=== PATIENT | male | born 1935 | race Caucasian/White ===

== ENCOUNTER 2021-10-04 17:19 | Inpatient (IN) | payer OTHER ==
--- OUTSIDE RECORDS SUMMARY | 2021-10-04 19:07 | XMS REPORT | Continuity of Care Document ---
:1935 Author Organization [facility] t Address [address] [place] [address] Dr. Temple [address] [place] [id number] Care Team Providers Name Role Phone Unavailable Unavailable Unavailable Problems This patient has no known problems. Allergies, Adverse Reactions, Alerts This patient has no known allergies or adverse reactions. Medications This patient has no known medications. Procedures This patient has no known procedures. Encounters Start End Encounter Admission Attending Care Care Encounter Source Date/Time Date/Time Type Type Clinicians Facility Department ID 2021-05-24 Outpatient [facility] [id number] Common 11:58:50 [id number] [facility] 2020-05-24 2020-05-24 Outpatient [facility] [id number] Common 00:00:00 00:00:00 [facility] 2020-02-22 2020-02-22 [facility]patient [facility] [id number] Common 00:00:00 00:00:00 [facility] Results This patient has no known results.
[2021-10-04] MEDS ORDERED: CEFTRIAXONE 1,000 MG in NA CHLORIDE 0.9% 50 ML IVPB ONE (21:58)
[2021-10-04] MEDS ORDERED: ACETAMINOPHEN 500 MG TAB PO PRN (22:02)
[2021-10-04] MEDS ORDERED: MAGNES/ALUMIN/SIMET 30ML UCUP PO PRN (22:02)
[2021-10-04] MEDS ORDERED: ONDANSETRON 4 MG/2 ML VIAL IV PRN (22:08)
[2021-10-04] MEDS ORDERED: MELATONIN 3 MG TABLET PO PRN (22:09)
[2021-10-04] MEDS: NA CHLORIDE 0.9% 1,000 ML IV SCH (22:43)
[2021-10-05 00:07] VITALS: O2SAT 96; BMI 21.7
[2021-10-05] MEDS: LEVOTHYROXINE SOD 0.088 MG TAB PO SCH (05:35)
[2021-10-05] MEDS: PANTOPRAZOLE 40MG TABLET PO SCH (05:35)
[2021-10-05 06:29] LABS: Absolute Lymphocytes (CBC) 0.8 K/uL (0.7-4.9); Hematocrit 43.3 % (39.6-49.0); Lymphocytes % 14.5 % (15.3-44.8); MPV 7.3 fL (7.6-11.3); RBC Red Blood Cell Count 4.93 M/uL (4.33-5.43)
[2021-10-05 06:46] LABS: Albumin 3.5 g/dL (3.4-5.0); Bilirubin Total 0.8 mg/dL (0.2-1.0); Potassium 3.2 mmol/L (3.5-5.1)
[2021-10-05] MEDS ORDERED: POTASSIUM CL SA 10 MEQ TAB PO ONE (08:00)
[2021-10-05] MEDS ORDERED: HOME MED 1 EA UNK (Omeprazole [Omeprazole] 20 MG Capsule.Dr) PO SCH (09:00)
[2021-10-05] MEDS: NA CHLORIDE 0.9% 1,000 ML IV SCH ×2 (09:01→18:00)
[2021-10-05] MEDS: MEMANTINE HCL 10 MG TABLET PO SCH ×2 (09:01→21:29)
[2021-10-05] MEDS: ATORVASTATIN 10 MG TAB PO SCH (09:01)
[2021-10-05] MEDS: HEPARIN 5000 UNIT/ML 1 ML VIAL SQ SCH ×2 (09:02→21:29)
[2021-10-05] MEDS: CEFTRIAXONE 1,000 MG in NA CHLORIDE 0.9% 50 ML IVPB SCH ×2 (09:02→21:29)
--- NOTE | 2021-10-05 09:29 | HP ---
Date of Admission: 10/04/2021 Chief Complaint: Not feeling good. History Of Present Illness: This is a very pleasant 86-year-old male patient who came into office on 10/02/2021 with his who reported that for last few to several days the patient is not eating we ll, feels very sleepy and tired all the time. Denies any fever. No fall. No head injury. No cough , congestion, sore throat. No dyspnea. No vomiting or diarrhea. No urinary complaints like dysuria or hematuria. No recent change in medication. He has lost almost 10 pounds within last 1 month. A fter all these complaints, he was sent to a hospital for blood work, chest x-ray, urine test. This w as done yesterday and he was asked to come see me today and after I evaluated him, decision was made to admit him to the hospital with acute kidney failure, urinary tract infection, dehydration. The pa tierachelle has not been taking medications regularly either lately as reported by patient's . Allergies: NO KNOWN ALLERGIES. Medications: Atorvastatin 10 mg daily, amlodipine 10 mg daily, donepezil 10 mg daily, Boniva 150 mg once a month, levothyroxine 88 mcg daily, losartan 25 mg daily in morning, memantine 10 mg 2 times a day, omeprazole 20 mg daily. Review of Systems: Constitutional: As mentioned above. All other systems reviewed and negative. Past Medical History: Significant for hypothyroidism, impaired fasting glucose, hypertension, hyperl ipidemia, aortic stenosis, carotid artery stenosis, gastroesophageal reflux disease, prostate cancer, dementia, and osteoporosis. Past Surgical History: Negative. Family History: Father , had hypertension. Mother , had stroke. Social History: Negative for smoking, alcohol use. Immunization History: The patient's COVID-19 vaccine first dose June 01, 2020, second dose June 28, 2020, and third dose February 24, 2021. Physical Examination: Vital Signs: Upon admission, height 5 feet 6 inches, weight 135 pounds. Temperature 97.6, pulse 62, respiratory rate 17, blood pressure 124/61, oxygen saturation 95%. General: The patient is awake, alert, not oriented, but not in any distress. HEENT: Head atraumatic, normocephalic. Conjunctivae nonerythematous. Sclerae white. Mouth, no thr ush or edema noted. Ears/Nose, no mass, lesion, discharge noted. Neck: Supple. No JVD, lymph nodes, bruit, thyromegaly noted. Lungs: Bilateral good equal air entry. Clear to auscultation. No rhonchi. No rales. Heart: Normal heart sounds, no murmur or gallop. Abdomen: Soft, bowel sounds normal. No guarding, rigidity, tenderness, mass, hepatosplenomegaly, dis tention, or bruit noted. Extremities: No leg edema. No calf tenderness. Skin: No rash, ulcer, cellulitis. Lymphatics: No lymph node enlargement in neck, supraclavicular, infraclavicular region. Neuro: No focal neurological deficit. Chest: Unremarkable. External Genitalia: Deferred. Rectal: Deferred. Laboratory Data: Urinalysis from yesterday, 2+ ketone, 1+ blood, 2+ bilirubin, WBC 5-10, bacteria 20 -50, protein 2+, negative for leukocyte esterase. Sodium 138, potassium 3.4, chloride 102, bicarb 27 , BUN 29, creatinine 2.26, and glucose 102. Total bilirubin 1.2, AST 48, ALT 59. Liver function lissett ts otherwise unremarkable. TSH slightly elevated at 5.9. White count 7.1, hemoglobin 16.1, platelet s 210. Chest x-ray, changes of COPD. No acute cardiac intrathoracic changes noted. Impression: 1.Acute kidney injury. 2.Urinary tract infection. 3.Senile dementia. 4.Hypertension. 5.Hyperlipidemia. 6.Aortic stenosis. 7.Hypothyroidism. 8.Impaired fasting glucose. 9.Prostate cancer. 10.Osteoporosis. 11.Gastroesophageal reflux disease. 12.Altered mental status. Plan: We will admit the patient to hospital for further evaluation and management of this problem. The patient is appropriate for inpatient and is expected to spend 2 midnights in hospital. We will c ontinue his home medications per order. We will go ahead and give DVT prophylaxis using Lovenox per order. IV fluid will be started. We will repeat blood work tomorrow morning. Urine culture was don e yesterday as outpatient. Result is pending. We will follow up on that result. Meanwhile, we will start him on empiric antibiotic, ceftriaxone and repeat blood work tomorrow morning. Consult Physic al Therapy for ambulation and fall precaution was ordered. Details and plan of treatment discussed w ith the patient. I will see him tomorrow morning for followup. TOYA/KIRTI Voice ID: [id number]
--- NOTE | 2021-10-05 14:18 | EKG ---
Test Date: 2021-10-05 Test Time: 01:14:59 Paper Stripper: RT MEASUREMENT RESULTS: Intervals: Rate: 73 [place]: QRSD: 94 QT: 416 QTc: 458 [place]: P: [place]: QRS: -26 T: 201 INTERPRETIVE STATEMENTS: Atrial fibrillation with premature ventricular or aberrantly conducted complexes Possible Inferior infarct, age undetermined Abnormal ECG Compared to ECG 10/15/2013 09:01:55 Ventricular premature complex(es) now present Myocardial infarct finding now present Sinus bradycardia no longer present First degree AV block no longer present Electronically Signed On 10-05-21 14:17:49 CDT by Gagan Arroyo
[2021-10-05] MEDS ORDERED: AMLODIPINE 10 MG TAB PO SCH (21:00)
[2021-10-05] MEDS: DONEPEZIL HCL 5 MG TAB PO SCH (21:29)
--- NOTE | 2021-10-06 00:40 | PN ---
Date of Progress Note: 10/05/2021 Subjective: Patient was seen this morning for followup. No new complaints or problems reported by windy smith. He was sitting in the chair. His daughter was with him in the room. Denies any new complai nts. Objective: Vital Signs: Reviewed. HEENT: Unremarkable. Lungs: Clear to auscultation. Heart: Heart sounds normal. Abdomen: Soft, bowel sounds normal. No guarding, rigidity, tenderness, or distention. Extremities: No leg edema. Laboratory Data: White count 5.8, hemoglobin 14.8, platelets 210. Sodium 141, potassium 3.2, chlori de 104, bicarb 28, BUN 29, creatinine 1.85, glucose 79. Liver function tests unremarkable. Impression: 1.Acute kidney injury. 2.Urinary tract infection. 3.Senile dementia. 4.Encephalopathy, metabolic. 5.Hypertension. 6.Hyperlipidemia. Plan: We will go ahead and continue IV fluid. We will have patient ambulate with physical therapy. Continue current antibiotic, which is ceftriaxone. Urine culture result is pending. Hopefully by t omorrow we should have the urine culture result back. We will repeat blood work tomorrow morning and possible discharge to go home tomorrow depending on patient's condition and urine culture results. Details were discussed with the patient and family. TOYA/MODL Voice ID: [id number] Report ID: [id number]
[2021-10-06] MEDS: NA CHLORIDE 0.9% 1,000 ML IV SCH ×2 (04:58→14:02)
[2021-10-06] MEDS: LEVOTHYROXINE SOD 0.088 MG TAB PO SCH (06:02)
[2021-10-06] MEDS: PANTOPRAZOLE 40MG TABLET PO SCH (06:02)
[2021-10-06 06:27] LABS: Magnesium 1.9 mg/dL (1.8-2.4); Potassium 3.6 mmol/L (3.5-5.1)
[2021-10-06] MEDS ORDERED: POTASSIUM CL SA 10 MEQ TAB PO ONE (09:00)
[2021-10-06] MEDS: MEMANTINE HCL 10 MG TABLET PO SCH ×2 (09:31→20:49)
[2021-10-06] MEDS: ATORVASTATIN 10 MG TAB PO SCH (09:31)
[2021-10-06] MEDS: CEFTRIAXONE 1,000 MG in NA CHLORIDE 0.9% 50 ML IVPB SCH ×2 (09:33→20:51)
[2021-10-06] MEDS: HEPARIN 5000 UNIT/ML 1 ML VIAL SQ SCH ×2 (09:33→20:48)
--- NOTE | 2021-10-06 16:23 | RAD REPORT ---
EXAM DESCRIPTION: US - Urinary Bladder - 10/06/2021 4:15 pm CLINICAL HISTORY: acute kidney injury COMPARISON: No comparisons FINDINGS: No urinary bladder wall thickening or focal bladder wall mass. No stones are seen though t here is minimal echogenic debris within the bladder lumen layering along the dependent portion. Prevoid volume was 190 milliliters. Postvoid volume was 42 milliliters.
--- NOTE | 2021-10-06 16:26 | RAD REPORT ---
EXAM DESCRIPTION: US - Renal Ultrasound-Complete - 10/06/2021 4:15 pm CLINICAL HISTORY: acute kidney injury COMPARISON: Abdomen Pelvis W Contrast dated 12/18/2016 FINDINGS: The right kidney measures 10.4 x 5.4 x 3.7 cm. The left kidney measures 11.7 x 6.2 x 4.3 cm. Cortical thickness is normal for each kidney. Echogenicity of the parenchyma is increased slightl y which can be body habitus artifact or indicate underlying medical renal disease. No hydronephrosis or suspicious renal mass. Small 11 mm cyst seen in the lateral mid upper right kidney. The small cyst is not significantly different from the 2017 CT study. Urinary bladder is detailed in separate report. IMPRESSION: Suspected underlying medical renal disease with no hydronephrosis or suspicious mass.
[2021-10-06] MEDS: DONEPEZIL HCL 5 MG TAB PO SCH (20:49)
[2021-10-07] MEDS: PANTOPRAZOLE 40MG TABLET PO SCH (05:52)
[2021-10-07] MEDS: LEVOTHYROXINE SOD 0.088 MG TAB PO SCH (05:52)
[2021-10-07 06:43] LABS: Potassium 3.6 mmol/L (3.5-5.1)
[2021-10-07] MEDS ORDERED: POTASSIUM CL SA 10 MEQ TAB PO ONE (09:00)
[2021-10-07] MEDS: ATORVASTATIN 10 MG TAB PO SCH (09:05)
[2021-10-07] MEDS: MEMANTINE HCL 10 MG TABLET PO SCH (09:05)
[2021-10-07] MEDS: HEPARIN 5000 UNIT/ML 1 ML VIAL SQ SCH (09:06)
[2021-10-07] MEDS: CEFTRIAXONE 1,000 MG in NA CHLORIDE 0.9% 50 ML IVPB SCH (09:06)
[2021-10-07] MEDS: NA CHLORIDE 0.9% 1,000 ML IV SCH ×2 (10:00)
[2021-10-07 13:16] VITALS: BP 118/63; TEMP 98.7
--- NOTE | 2021-10-21 16:19 | PN ---
Date of Progress Note: 10/06/2021 Subjective: The patient was seen this morning for followup. No new complaints, problems reported by him. Lying in bed, not in distress. Denies any chest pain, shortness of breath. No nausea, no vom iting. Objective: Vital Signs: Reviewed. HEENT: Unremarkable. Lungs: Clear to auscultation. Heart: Sounds normal. Abdomen: Soft. Bowel sounds normal. No guarding, rigidity, tenderness, or distention. Extremities: No leg edema. Laboratory Data: Sodium 140, potassium 3.6, chloride 111, bicarb 25, BUN 27, creatinine 1.65, glucos e 81, magnesium 1.9. Impression: 1.Acute kidney injury. 2.Urinary tract infection. 3.Mild dementia. 4.Metabolic encephalopathy. 5.Hypertension. 6.Hyperlipidemia. Plan: The patient's renal function has improved. We will continue current IV fluid. We will contin ue current antibiotics. Physical Therapy to continue to work with the patient. We will repeat blood work tomorrow. Possible discharge to go home tomorrow depending on the patient's overall condition and lab results. Details and plan of treatment discussed with the patient and the patient's family that is patient's . TOYA/MODL Voice ID: [id number] Report ID: [id number]
--- NOTE | 2021-10-21 20:10 | DS ---
Date of Discharge: 10/07/2021 Disposition: Discharged to go home. Discharge Medications And Instructions: 1.Continue all prior home medications except stop amlodipine and stop losartan. 2.Follow up at my office next week on , which is 10/12/2021. 3.Eat 3 meals a day and drink Ensure or boost 2 cans a day. 4.Drink 50-60 ounce of water daily. Laboratory Data: Last chemistry today, sodium 142, potassium 3.6, chloride 113, bicarb 23, BUN 21, c reatinine 1.49, glucose 82. On 10/05/2021, sodium 141, potassium 3.2, chloride 104, bicarb 28, BUN 2 9, creatinine 1.85, glucose 79. Liver function tests unremarkable. Ultrasound of kidney shows suspe cted underlying medical renal disease. No hydronephrosis. No suspicious mass. Ultrasound of bladde r was unremarkable, no evidence of any bladder mass or stone except minimal echogenic debris within t he bladder lumen layering along the dependent portion. Hospital Course: This is an 86-year-old male patient who was admitted to the hospital with acute kid toro injury and urinary tract infection. Please see dictated H and P for more information. The patie nt's urinalysis had shown 2+ ketone, 1+ blood, 2+ bilirubin, wbc 5-10, bacteria 20-50, protein 2+, ne gative for leukocyte esterase. Urine culture did not grow any specific bacteria. Outpatient creatin ine was 2.26. This was done day prior to admission. Chest x-ray had shown changes of COPD, no acute intrathoracic changes. After the patient was admitted to the hospital, he was given IV fluid and IV antibiotics. Overall his condition improved. Renal function improved and we were able to discharge him to go back home in stable condition with above-mentioned medications and instructions. Final Diagnoses: 1.Acute kidney injury. 2.Urinary tract infection. 3.Senile dementia. 4.Hypertension. 5.Hyperlipidemia. 6.Encephalopathy, metabolic. 7.Aortic stenosis. 8.Hypothyroidism. 9.Impaired fasting glucose. 10.Prostate cancer. 11.Osteoporosis. 12.Gastroesophageal reflux disease. TOYA/MODL Voice ID: [id number] Report ID: [id number]
== END 2021-10-07 12:45 | disposition home health service (06) | DRG 682 ==
LOC: 2ND 19:04
PROVIDERS: ADMIT Internal Medicine; ATTEND Internal Medicine
DX: N17.9 Acute kidney failure, unspecified (principal); G93.41 Metabolic encephalopathy; N39.0 Urinary tract infection, site not specified; Q78.2 Osteopetrosis; J44.9 Chronic obstructive pulmonary disease, unspecified; E03.9 Hypothyroidism, unspecified; I35.0 Nonrheumatic aortic (valve) stenosis; E78.5 Hyperlipidemia, unspecified; K21.9 Gastro-esophageal reflux disease without esophagitis; Z85.46 Personal history of malignant neoplasm of prostate; F03.90 Unspecified dementia, unspecified severity, without behavioral disturbance, psychotic disturbance, mood disturbance, and anxiety; I10 Essential (primary) hypertension
CPT/HCPCS: 36415; 71046; 76770; 76857; 80048; 80053; 81003; 81015; 83735; 84132; 84439; 84443; 85025; 87086; 87088; 93005; 97110; 97116; 97161; 97530; J1644; J7030; U0003

== ENCOUNTER 2021-10-21 03:36 | Inpatient (IN) | payer OTHER ==
--- OUTSIDE RECORDS SUMMARY | 2021-10-21 03:39 | XMS REPORT | Continuity of Care Document ---
:[address] [facility] t Address [address] [place] [address] Dr. Temple [address] [place] [id number] Care Team Providers Name Role Phone Unavailable Unavailable Unavailable Problems This patient has no known problems. Allergies, Adverse Reactions, Alerts This patient has no known allergies or adverse reactions. Medications This patient has no known medications. Procedures This patient has no known procedures. Encounters Start End Encounter Admission Attending Care Care Encounter Source Date/Time Date/Time Type Type Clinicians Facility Department ID 2021-05-[address] [facility] [id number] Common 11:58:50 [id number] [facility] 2020-05-24 2020-05-[address] [facility] [id number] Common 00:00:00 00:00:00 [facility] 2020-02-22 2020-02-22 [facility] [id number] Common 00:00:00 00:00:00 [facility] Results This patient has no known results.
[2021-10-21] MEDS ORDERED: propofoL 1,000 MG/100 ML VIAL IV ONE (04:31)
[2021-10-21] MEDS ORDERED: METOPROLOL TARTRATE 5 MG/5 ML INJ IV ONE (04:44)
[2021-10-21 04:45] LABS: Protime INR 1.17
[2021-10-21 05:07] LABS: Albumin 3.7 g/dL (3.4-5.0); Bilirubin Direct 0.3 mg/dL (0-0.2); Magnesium 2.1 mg/dL (1.8-2.4); Potassium 3.4 mmol/L (3.5-5.1); Protein, Total 7.1 g/dL (6.4-8.2); Troponin High Sensitivity 50.6 pg/mL (<58.9)
[2021-10-21 05:16] LABS: Absolute Lymphocytes (CBC) 1.8 K/uL (0.7-4.9); Hematocrit 42.8 % (39.6-49.0); Lymphocytes % 27.2 % (15.3-44.8); MCV 89.8 fL (80-100); MPV 7.5 fL (7.6-11.3); RBC Red Blood Cell Count 4.77 M/uL (4.33-5.43)
[2021-10-21 06:20] LABS: Arterial Blood Carboxyhemoglob 0.8 % (0-1.5); Blood Gas Oxyhemoglobin 95.1 % (94-97); Blood O2 Saturation 96.8 % (92-98.5)
--- NOTE | 2021-10-21 06:37 | EDPHYS ---
Physician Documentation [facility] Name: Alphonso Storm Age: 86 yrs Sex: Male : 1935 Arrival Date: 10/21/2021 Time: 03:38 Bed 7 Private MD: ED Physician Silvano Alvarado HPI: 10/21 03:45 This 86 yrs old Male presents to ER via EMS with complaints of Fall. [facility] 03:45 Details of fall: The patient fell from an upright position, while walking. Onset: The [facility] symptoms/episode began/occurred today. Associated injuries: The patient sustained injury to the head, contusion, pain. 03:45 Severity of symptoms: At their worst the symptoms were moderate, earlier today, in the [facility] emergency department the symptoms have improved, moderately. EMS reports they were called due to patient falling at home. They found him to be bradycardic with HR in the 30's he responded to Atropine 0.5 mg.. Historical: - Allergies: 03:49 HYDROCODONE; ll3 03:49 tramadol; ll3 - PMHx: 03:49 GERD; High Cholesterol; Hypertension; Hypothyroidism; ll3 ROS: 03:45 Constitutional: Negative for fever, chills, and weight loss, Eyes: Negative for injury, mh7 pain, redness, and discharge, ENT: Negative for injury, pain, and discharge, Neck: Negative for injury, pain, and swelling, Cardiovascular: Negative for chest pain, palpitations, and edema, Respiratory: Negative for shortness of breath, cough, wheezing, and pleuritic chest pain, Abdomen/GI: Negative for abdominal pain, nausea, vomiting, diarrhea, and constipation, Back: Negative for injury and pain, : Negative for injury, bleeding, discharge, and swelling, MS/Extremity: Negative for injury and deformity, Skin: Negative for injury, rash, and discoloration, Neuro: Negative for headache, weakness, numbness, tingling, and seizure, Psych: Negative for depression, anxiety, suicide ideation, homicidal ideation, and hallucinations, Allergy/Immunology: Negative for hives, rash, and allergies, Endocrine: Negative for neck swelling, polydipsia, polyuria, polyphagia, and marked weight changes, Hematologic/Lymphatic: Negative for swollen nodes, abnormal bleeding, and unusual bruising. Exam: 03:45 Head/Face: Normocephalic, atraumatic. Eyes: Pupils equal round and reactive to light, mh7 extra-ocular motions intact. Lids and lashes normal. Conjunctiva and sclera are non-icteric and not injected. Cornea within normal limits. Periorbital areas with no swelling, redness, or edema. Neck: Trachea midline, no thyromegaly or masses palpated, and no cervical lymphadenopathy. Supple, full range of motion without nuchal rigidity, or vertebral point tenderness. No Meningismus. Chest/axilla: Normal chest wall appearance and motion. Nontender with no deformity. No lesions are appreciated. Cardiovascular: Regular rate and rhythm with a normal S1 and S2. No gallops, murmurs, or rubs. Normal PMI, no JVD. No pulse deficits. Respiratory: Lungs have equal breath sounds bilaterally, clear to auscultation and percussion. No rales, rhonchi or wheezes noted. No increased work of breathing, no retractions or nasal flaring. Abdomen/GI: Soft, non-tender, with normal bowel sounds. No distension or tympany. No guarding or rebound. No evidence of tenderness throughout. Back: No spinal tenderness. No costovertebral tenderness. Full range of motion. Skin: Warm, dry with normal turgor. Normal color with no rashes, no lesions, and no evidence of cellulitis. MS/ Extremity: Pulses equal, no cyanosis. Neurovascular intact. Full, normal range of motion. Neuro: Awake and alert, GCS 15, oriented to person, place, time, and situation. Cranial nerves II-XII grossly intact. Motor strength 5/5 in all extremities. Sensory grossly intact. Cerebellar exam normal. Normal gait. Psych: Awake, alert, with orientation to person, place and time. Behavior, mood, and affect are within normal limits. 03:45 Constitutional: The patient appears in no acute distress, alert, awake, uncomfortable. Vital Signs: 03:43 BP 155 / 96; Pulse 48; Resp 18; Temp 97.3(TE); Pulse Ox 98% on R/A; Weight 61.23 kg ll3 (R); Height 5 ft. 7 in. (170.18 cm) (R); 04:21 BP 217 / 145; Pulse 141; Resp 23; Pulse Ox 96% on BVM; sm5 04:35 BP 169 / 105; Pulse 106; Resp 17; Pulse Ox 98% on ETT vent; sm5 04:45 BP 161 / 114; Pulse 116; Resp 18; Pulse Ox 95% on ETT vent; sm5 05:45 BP 160 / 82; Pulse 95; Resp 24; Pulse Ox 98% ; ll3 06:37 BP 146 / 74; Pulse 82; Resp 15; Pulse Ox 100% on Non-rebreather mask; ll3 07:00 BP 141 / 76; Pulse 75; Resp 16; Temp 97.6(TE); Pulse Ox 100% on Non-rebreather mask; jh6 07:34 BP 120 / 69; Pulse 78; Resp 8; Pulse Ox 100% ; jh6 03:43 Body Mass Index 21.14 (61.23 kg, 170.18 cm) 3 Procedures: 04:50 CPR: See CPR flow sheet. Initial patient assessment: pulses present w/ compressions, mh7 The presenting cardiac rhythm is V tach. respirations assisted with BVM, Compressions: began Meds given: Atropine X 1, Epinephrine X 1, Defibrillation: 100 joules X 2. regained rhythm, regained respirations. 04:50 Intubation: Ventilated with 100% NRB prior to procedure. O2 saturation prior to 7 procedure was 92 %. Intubated orally using # 3 Raghavendra blade with 7.5 mm ETT. was successful on first attempt. Ventilated with Ambu bag. ventilator. Cricoid pressure applied during procedure. Tube secured with ETT lopez at right side of mouth measured 22 cm at lip. Placement verified by CO2 detector with (+) color change, auscultating bilateral breath sounds, O2 saturation after procedure was 98 %. Patient tolerated well. MDM: 06:22 Differential diagnosis: closed head injury, contusion, fracture. Data reviewed: vital [facility] signs, nurses notes, EMS record, lab test result(s), drug level(s), electrolytes, EKG, radiologic studies, CT scan, plain films. Data interpreted: Pulse oximetry: on ventilator is 98 %. Interpretation: normal. Counseling: I had a detailed discussion with the patient and/or guardian regarding: the historical points, exam findings, and any diagnostic results supporting the discharge/admit diagnosis, the presence of at least one elevated blood pressure reading (>120/80) during this emergency department visit, lab results, radiology results, the need to transfer to another facility, for higher level of care. Response to treatment: the patient's symptoms have mildly improved after treatment. ED course: Patient with STEMI, intubated, and ready to transfer to [facility] but his family declined stating he is DNR. They also declined thrombolytics and anything other than comfort measures. They signed DNR form in the ER. Discussed with Dr. Sanchez who is agreeable with patient staying here if DNR.. 06:37 Patient medically screened. [facility] 10/21 03:47 Order name: Basic Metabolic Panel; Complete Time: 06:22 [facility] 10/21 03:47 Order name: CBC with Diff; Complete Time: 06:22 [facility] 10/21 03:47 Order name: LFT's; Complete Time: 06:22 [facility] 10/21 03:47 Order name: Magnesium; Complete Time: 06:22 [facility] 10/21 03:47 Order name: NT PRO-BNP; Complete Time: 06:22 [facility] 10/21 03:47 Order name: PT-INR; Complete Time: 04:47 [facility] 10/21 03:47 Order name: Troponin HS; Complete Time: 06:22 [facility] 10/21 03:47 Order name: XRAY Chest (1 view) [facility] 10/21 03:47 Order name: CT Head C Spine [facility] 10/21 04:42 Order name: Chest Single View [facility] 10/21 04:59 Order name: COVID-19 SARS RT PCR (Document "Date of Onset" if Symptomatic); Complete ll3 Time: 06:10/21 05:06 Order name: Arterial Blood Gas; Complete Time: 06:22 [facility] 10/21 03:47 Order name: EKG; Complete Time: 03:48 [facility] 10/21 03:47 Order name: Cardiac monitoring; Complete Time: 04:54 [facility] 10/21 03:47 Order name: EKG - Nurse/Tech; Complete Time: 04:54 [facility] 10/21 03:47 Order name: IV Saline Lock; Complete Time: 03:52 [facility] 10/21 03:47 Order name: Labs collected and sent; Complete Time: 04:54 [facility] 10/21 03:47 Order name: O2 Per Protocol; Complete Time: 03:52 [facility] 10/21 03:47 Order name: O2 Sat Monitoring; Complete Time: 03:52 [facility] 10/21 06:46 Order name: CONS Physician Consult EDNM Administered Medications: 04:18 Drug: EPINEPHrine 0.1mg/mL 1:10,000 1 mg Route: IVP; Site: right antecubital; 5 04:21 Drug: EPINEPHrine 0.1mg/mL 1:10,000 1 mg Route: IVP; Site: right antecubital; 5 04:22 Drug: Atropine 1 mg Route: IVP; Site: right antecubital; 5 04:25 Drug: Etomidate 20 mg Route: IVP; Site: right antecubital; 5 04:25 Drug: Rocuronium 50 mg Route: IVP; Site: right antecubital; 5 04:30 Drug: Propofol 5 mcg/kg/min Route: IV; Rate: calculated rate; Site: right antecubital; 5 07:26 Drug: morphine 4 mg Route: IVP; Infused Over: 4 mins; Site: right forearm; [facility] Disposition Summary: 10/21/21 06:37 Hospitalization Ordered Hospitalization Status: Inpatient Admission [facility] Provider: Abrahan Sanchez Condition: Critical [facility] Problem: new [facility] Symptoms: have improved [facility] Bed/Room Type: Standard [facility] Location: Telemetry/MedSurg (Inpatient)(10/21/21 09:12) Room Assignment: [facility](10/21/21 09:12) Diagnosis - ST elevation (STEMI) myocardial infarction of unspecified site [facility] - Cardiac arrest due to underlying cardiac condition [facility] Forms: - Medication Reconciliation Form [facility] - SBAR form [facility] Signatures: Dispatcher [employer] EDNM Candi Davison Maurice, MD MD 7 Tanisha Weldon RN RN adarsh3 Alessandra Thomas RN RN 6 Stacey Marin RN RN 5 Corrections: (The following items were deleted from the chart) 05:34 05:07 Chest Single View+RAD.RAD.BRZ ordered. EDNM EDNM 09:12 06:37 Intensive Care Unit [facility] eb 09:12 06:37 [facility]
--- NOTE | 2021-10-21 06:37 | ER ---
Nurse's Notes [facility] Name: Alphonso Storm Age: 86 yrs Sex: Male : 1935 Arrival Date: 10/21/2021 Time: 03:38 Bed 7 Private MD: Diagnosis: ST elevation (STEMI) myocardial infarction of unspecified site;Cardiac arrest due to underlying cardiac condition Presentation: 10/21 03:43 Chief complaint: EMS states: Toned out for fall, EMS states upon arrival pt HR was 35 ll3 and BP was 80/60, pt was sweaty and cool, pt denies LOC, states pt was recently released from the hospital with a kidney infection. Coronavirus screen: At this time, the client does not indicate any symptoms associated with coronavirus-19. Ebola Screen: No symptoms or risks identified at this time. Initial Sepsis Screen: Does the patient meet any 2 criteria? Altered Mental Status. No. Patient's initial sepsis screen is negative. Does the patient have a suspected source of infection? No. Patient's initial sepsis screen is negative. Risk Assessment: Do you want to hurt yourself or someone else? Patient reports no desire to harm self or others. Onset of symptoms was October 21, 2021. Care prior to arrival: Medication(s) given: Atropine 0.5 MG IV initiated. 20 GA, in the right antecubital area, Glucose check: 124. Transition of care: patient was not received from another setting of care. 03:43 Method Of Arrival: EMS: [facility] ll3 03:43 Acuity: DANTE 3 ll3 04:37 Compressions began at 04:17. sm5 Triage Assessment: 03:49 General: Appears comfortable, Behavior is cooperative. Neuro: Level of Consciousness is ll3 confused, lethargic, Oriented to person, place, time, situation. Respiratory: Respiratory effort is even, unlabored, Respiratory pattern is regular, symmetrical. Derm: Wound noted left elbow Wound is Skin tear Bruising that is dark purple, on right lower quadrant and left lower quadrant. Historical: - Allergies: 03:49 HYDROCODONE; ll3 03:49 tramadol; ll3 - PMHx: 03:49 GERD; High Cholesterol; Hypertension; Hypothyroidism; ll3 Assessment: 03:51 General: See triage assessment. ll3 04:16 CPR assessment: unresponsive. Cardiac rhythm is V tach. 5 05:30 Reassessment: No changes from previously documented assessment. Patient and/or family ll3 updated on plan of care and expected duration. Pain level reassessed. 06:37 Reassessment: No changes from previously documented assessment. Patient and/or family ll3 updated on plan of care and expected duration. Pain level reassessed. 07:05 General: General: Pt appears restless, family at bedside reporting that he is a DNR and 6 that he has been restless after removal of ET tube. advised pt that he was on sedation when he was intubated and that's most likely why he was more relaxed. advised that I was going to given pain meds to help with restlessness and that he is probably hurting after CPR was done. . 07:27 General: Appears uncomfortable, Behavior is anxious. Neuro: Level of Consciousness is jh6 lethargic. Vital Signs: 03:43 BP 155 / 96; Pulse 48; Resp 18; Temp 97.3(TE); Pulse Ox 98% on R/A; Weight 61.23 kg 3 (R); Height 5 ft. 7 in. (170.18 cm) (R); 04:21 BP 217 / 145; Pulse 141; Resp 23; Pulse Ox 96% on BVM; 5 04:35 BP 169 / 105; Pulse 106; Resp 17; Pulse Ox 98% on ETT vent; 5 04:45 BP 161 / 114; Pulse 116; Resp 18; Pulse Ox 95% on ETT vent; 5 05:45 BP 160 / 82; Pulse 95; Resp 24; Pulse Ox 98% ; 3 06:37 BP 146 / 74; Pulse 82; Resp 15; Pulse Ox 100% on Non-rebreather mask; 3 07:00 BP 141 / 76; Pulse 75; Resp 16; Temp 97.6(TE); Pulse Ox 100% on Non-rebreather mask; 6 07:34 BP 120 / 69; Pulse 78; Resp 8; Pulse Ox 100% ; 6 03:43 Body Mass Index 21.14 (61.23 kg, 170.18 cm) 3 ED Course: 03:38 Patient arrived in ED. 5 03:42 Silvano Alvarado MD is Attending Physician. [facility] 03:43 Tanisha Weldon RN is Primary Nurse. ll3 03:49 Triage completed. ll3 03:49 Arm band placed on Patient placed in an exam room, on a stretcher, on pulse oximetry. ll3 03:52 Maintain EMS IV. Dressing intact. Good blood return noted. Site clean \T\ dry. Gauge \T\ ll 3 site: 20 G RAC. 04:19 Defibrillated with [address] joules. sm5 04:20 CT Head C Spine In Process Unspecified. EDMS 04:23 Assisted provider with intubation using 7.5 mm ETT via oral route. ET tube secured at sm5 22cm at the lips. Set up intubation tray. Intubated by Silvano Alvarado MD Placement verified by CO2 detector w/ + color change, auscultating bilateral breath sounds, CXR, Patient tolerated well. 04:29 NGT: inserted 14 Fr. other oral verified placement of air over stomach, Placement sm5 verified by X-ray, Patient tolerated well. 04:30 XRAY Chest (1 view) In Process Unspecified. EDMS 04:52 Chest Single View In Process Unspecified. EDMS 04:53 Inserted saline lock: 18 gauge in left EJ, using aseptic technique. ,using aseptic sm5 technique. By Dr. Alvarado. 06:36 Abrahan Sanchez MD is Hospitalizing Provider. [facility] Administered Medications: 04:18 Drug: EPINEPHrine 0.1mg/mL 1:10,000 1 mg Route: IVP; Site: right antecubital; sm5 04:21 Drug: EPINEPHrine 0.1mg/mL 1:10,000 1 mg Route: IVP; Site: right antecubital; sm5 04:22 Drug: Atropine 1 mg Route: IVP; Site: right antecubital; sm5 04:25 Drug: Etomidate 20 mg Route: IVP; Site: right antecubital; sm5 04:25 Drug: Rocuronium 50 mg Route: IVP; Site: right antecubital; sm5 04:30 Drug: Propofol 5 mcg/kg/min Route: IV; Rate: calculated rate; Site: right antecubital; sm5 07:26 Drug: morphine 4 mg Route: IVP; Infused Over: 4 mins; Site: right forearm; [facility] Outcome: 06:37 Decision to Hospitalize by Provider. 7 10:21 Admitted to [place] [id number] 10:21 Condition: good 10:21 Instructed on the need for transfer. 10:22 Patient left the ED. [facility] Signatures: Dispatcher [employer] Silvano Joshi MD MD mh7 Tanisha Weldon RN RN ll3 Alessandra Thomas RN RN jh6 Stacey Marin RN RN sm5
[2021-10-21] MEDS ORDERED: MORPHINE 4 MG/ML SYR IV PRN (06:41)
[2021-10-21] MEDS ORDERED: MORPHINE 4 MG/ML SYR ONE (07:27)
[2021-10-21] MEDS ORDERED: FENTANYL 25 MCG/PATCH TD ONE (09:00)
[2021-10-21] MEDS ORDERED: ASPIRIN EC 81 MG TAB PO ONE (12:00)
[2021-10-21] MEDS ORDERED: QUETIAPINE 25 MG TAB PO ONE (12:00)
[2021-10-21 12:17] LABS: Magnesium 2.1 mg/dL (1.8-2.4); Potassium 3.6 mmol/L (3.5-5.1)
[2021-10-21] MEDS ORDERED: ENOXAPARIN 40 MG/0.4 ML SQ ONE (13:35)
[2021-10-21] MEDS: D5 0.9 NS 1,000 ML IV SCH (14:17)
[2021-10-21 14:43] VITALS: BMI 23.5
[2021-10-21] MEDS: ENOXAPARIN 60 MG/0.6 ML SQ SCH (14:46)
--- NOTE | 2021-10-21 16:29 | RAD REPORT ---
EXAM DESCRIPTION: RAD - Chest Single View - 10/21/2021 4:50 am CLINICAL HISTORY: CODE BLUE COMPARISON: 10/21/2021. TECHNIQUE: XR CHEST 1 VIEW 10/21/2021 12:00 AM CDT FINDINGS: The heart is enlarged. There are increased interstitial markings throughout both lungs, es pecially in the lung bases. There is no pleural effusion. There is no pneumothorax. There are no acut e osseous findings. Endotracheal tube tip is in the midtrachea. NG tube tip is in the stomach. IMPRESSION: No significant change following intubation. Electronically signed by: Oral Gatica MD 10/21/2021 5:45 AM CDT Due to temporary technical issues with the PACS/Fluency reporting system, reports are being signed by the in house radiologists without. review as a courtesy to insure prompt reporting. The interpreting radiologist is fully responsible for the content of the report.
--- NOTE | 2021-10-21 16:44 | RAD REPORT ---
EXAM DESCRIPTION: CT - Head C Spine Mpr Wo Con - 10/21/2021 6:51 am CLINICAL HISTORY: Trauma COMPARISON: None. TECHNIQUE: CT HEAD AND CERVICAL SPINE WITHOUT CONTRAST on 10/21/2021 3:47 AM CDT This exam was performed according to our departmental dose-optimization program, which includes autom ated exposure control, adjustment of the mA and/or kV according to patient size and/or use of iterati ve reconstruction technique. FINDINGS: Brain: There is no acute hemorrhage, mass effect or midline shift. Aguila-white differentiat ion is preserved. There is no hydrocephalus. There is mild bifrontal cerebral atrophy. The calvarium is intact. Orbits and globes are unremarkable. The paranasal sinuses are clear. Mastoid air cells are clear. Cervical Spine: There is no acute fracture. Alignment is anatomic. There is mild diffuse facet arthri tis with fusion of the left upper facet joints. There is mild narrowing of the C2-3 and C3-4 discs. Vertebral body heights are preserved. Soft tissue s are unremarkable. IMPRESSION: No definite acute findings. Electronically signed by: Oral Gatica MD 10/21/2021 4:38 AM CDT Due to temporary technical issues with the PACS/Fluency reporting system, reports are being signed by the in house radiologists without. review as a courtesy to insure prompt reporting. The interpreting radiologist is fully responsible for the content of the report
--- NOTE | 2021-10-21 16:46 | RAD REPORT ---
EXAM DESCRIPTION: RAD - Chest Single View - 10/21/2021 4:28 am CLINICAL HISTORY: 86 years Male, CONGESTION COMPARISON: Prior chest x-ray report from 10/03/2021. The image was not available for review. TECHNIQUE: Single portable x-ray view of the chest performed on 10/21/2021 at 4:01 AM FINDINGS: The lungs are well-expanded. There are prominent interstitial opacities in the perihilar r egions and inferior hemithoraces with partial obscuration of the left hemidiaphragm. Findings may be due to vascular congestion. Trace pleural effusions are not excluded. There is no evidence of a pneum othorax. The cardiac silhouette is mildly prominent and may be partly accentuated by the portable technique. The mediastinal contours are normal. No acute osseous abnormality is identified. No acute soft tissue abnormalities are seen. Lines and tubes: None. Free air: None IMPRESSION: Prominent interstitial opacities in the perihilar regions and inferior hemithoraces with partial obscuration of the left hemidiaphragm. Findings may be due to vascular congestion. Trace ple ural effusions are not excluded. Electronically signed by: Indy Aguirre DO 10/21/2021 5:17 AM CDT Due to temporary technical issues with the PACS/Fluency reporting system, reports are being signed by the in house radiologists without. review as a courtesy to insure prompt reporting. The interpreting radiologist is fully responsible for the content of the report
[2021-10-21] MEDS ORDERED: ENOXAPARIN 40 MG/0.4 ML SQ SCH (17:00)
--- NOTE | 2021-10-21 17:27 | EKG ---
Test Date: 2021-10-21 Test Time: 04:08:32 Manager Behavioral: CADEN MEASUREMENT RESULTS: Intervals: Rate: 62 OR: QRSD: 102 QT: 432 QTc: 438 [place]: P: OR: QRS: 83 T: 104 INTERPRETIVE STATEMENTS: Atrial fibrillation ST elevation, consider inferior injury or acute infarct ACUTE AK / STEMI Consider right ventricular involvement in acute inferior infarct Abnormal ECG Compared to ECG 10/05/2021 01:14:59 ST (T wave) deviation now present Ventricular premature complex(es) no longer present Myocardial infarct finding still present Myocardial infarct finding still present Electronically Signed On 10-21-21 17:26:56 CDT by Gagan Arroyo
[2021-10-21] MEDS: METOPROLOL TAR 25 MG TAB PO SCH (18:00)
--- NOTE | 2021-10-21 19:37 | CON ---
Date of Consultation: 10/21/2021 Reason For Consultation: Elevated troponin. History Of Present Illness: An 86-year-old male who is a DNR who lives at home with a very poor qual ity of life as per his , does not want any aggressive workup and measurements done. Basically, bulmaro rincon was put in to the hospital as he had a fall and was found to have acute myocardial infarction. Mel arently, family did not want anything done because of the patient's wish and he is a DNR. At bedside , I evaluated him. He was asleep and his asked me not to wake him up as he had a rough morning, and she repeated the same wish that the patient does not want any aggressive workup done or measurem ents done. I explained to her that the patient had a major heart attack, but she still did not want to proceed with any workup until after she discussed with her daughter and the patient himself. Past Medical History: Hypertension, dyslipidemia, acid reflux. Medications: Refer to reconciliation sheet for detailed list. Allergies: HYDROCODONE. Family History: No premature coronary artery disease or cancer. Social History: He does not smoke or drink. Does not use any drugs. Review of Systems: All systems reviewed and they were negative except for what mentioned in HPI. Physical Examination: Vital Signs: Reviewed. Head and Neck: Pupils are equal, reactive to light. Intact eye movements. No JVD. No cervical lym phadenopathy. Neck is supple. Thyroid is not enlarged. Lungs: Clear to auscultation. Heart: Irregular with aortic systolic ejection murmur. Abdomen: Soft, nontender. Bowel sounds positive. Extremities: No clubbing, cyanosis. Skin: No rash. Neurologic: Could not perform. He was lethargic and asleep. Lymph Nodes: No cervical or axillary lymphadenopathy. Investigations: Troponins . Creatinine is 1.89. Hemoglobin is 14.4. Assessment And Recommendations: 1.Acute myocardial infarction. I explained to the that he had a major heart attack and needed to have an immediate action and I was not notified of this ST-elevation myocardial infarction from [facility] emergency room, but apparently that this patient did not want any invasive treatment done as such. At this point, I recommend to start on low-dose metoprolol 12.5 mg twice a day and continue with the Lovenox weight based, baby aspirin, and high-dose statin, and titrate metoprolol as blood pressure a llows and I will introduce low-dose of beta-sylvester as soon. Also load with 300 mg of Plavix and the n 75 mg daily afterwards. 2.Cardiac arrest due to ventricular tachycardia from the acute ischemia and acute heart attack. Sta rt metoprolol as above and titrate as needed and obtain echocardiogram. I had a long discussion with the that she was very clear that his wish is not to proceed with an y workup or any invasive measures and he is DNR status. SR/MODL Voice ID: [id number] Report ID: [id number]
[2021-10-21] MEDS ORDERED: KCL 20 MEQ/100 mL IVPB 20 MEQ/100 ML BAG IV ONE (20:00)
--- NOTE | 2021-10-21 20:31 | HP ---
Date of Admission: 10/21/2021 Chief Complaint: Fall. History Of Present Illness: This is an 86-year-old male patient who lives at home with his and they both are in a separate bedroom. So last night the patient's says that when she was in her bedroom all of a sudden she heard a noise as if her was calling from another room, so when ayana rincon went to check on him, she found out that he was on the bathroom floor, so apparently he had tried t o go to the bathroom and fell down. She called ambulance and when EMS arrived at scene, they noted t hat the patient had significant bradycardia and heart rate was low enough that he required IV injecti on of atropine and he was brought into the emergency room. After he arrived in the emergency room, t he patient had a cardiac arrest with pulseless ventricular tachycardia and the patient was given epin ephrine. CPR was started. He was intubated and early this morning, ER physician contacted me at [facility] t time after all this intervention was done. ER physician also informed me that as per his discussio n with the patient's and daughter they informed physician that the patient would not have wanted any heroic measures like CPR, defibrillation, or ventilator support and they requested DNR order to be in place and also talked to ER physician to see if family wants to extubate him and let the nature take its course. After my discussion with the ER physician, he did communicate with family and prob ably sometime before 7 a.m. today patient was extubated. When I saw him, he was in the emergency glory , not in any respiratory distress, but disoriented, somewhat restless and was with him at [facility]. He did not answer any questions. The patient's EKG had shown acute inferior wall IL. Allergies: TO HYDROCODONE. Review of Systems: PROTOTYPE TECHNICIAN: Patient has altered mental status and his baseline is altered because of his senile dementia pr oblem. All other systems reviewed and negative. Medications: 1.Atorvastatin 10 mg daily. 2.Donepezil 10 mg daily. 3.Boniva 150 mg once a month. 4.Levothyroxine 88 mcg daily. 5.Memantine 10 mg 2 times a day. 6.Omeprazole 20 mg daily. Past Medical History: Significant for hypothyroidism, impaired fasting glucose, hypertension, hyperl ipidemia, aortic stenosis, carotid artery stenosis, gastroesophageal reflux disease, prostate cancer, dementia, osteoporosis. Past Surgical History: Negative. Family History: Father , had hypertension. Mother , had stroke. Social History: Negative for smoking and alcohol use. Physical Examination: VITAL SIGNS: This morning, temperature 97.6, pulse 75, respiratory rate 16, blood pressure 141/76, o xygen saturation 100%, height 5 feet 7 inches, weight 150 pounds. GENERAL: Patient lying in bed, somewhat restless, not in any respiratory distress. Does not answer any questions or does not follow any commands. HEENT: Head atraumatic, normocephalic. Conjunctivae nonerythematous. Sclerae white. Mouth, no thr ush or edema noted. Ears/Nose, no mass, lesion, discharge noted. Neck: Supple. No JVD, lymph nodes, bruit, thyromegaly noted. Lungs: Bilateral good equal air entry. Clear to auscultation. No rhonchi. No rales. Heart: Normal heart sounds, no murmur or gallop. Abdomen: Soft, bowel sounds normal. No guarding, rigidity, tenderness, mass, hepatosplenomegaly, dis tention, or bruit noted. Extremities: No leg edema. No calf tenderness. Skin: No rash, ulcer, cellulitis. Lymphatics: No lymph node enlargement in neck, supraclavicular, infraclavicular region. Neuro: No focal neurological deficit. Chest: Unremarkable. External Genitalia: Deferred. Rectal: Deferred. Laboratory Data: White count 6.7, hemoglobin 14.4, platelets 186. Protime 12.9, INR 1.17. Blood ga s; pH 7.30, pCO2 44.4, pO2 101, oxygen saturation 96.8% on 80% FiO2. Initial chemistry; sodium 141, potassium 3.4, chloride 107, bicarb 23, BUN 23, creatinine 1.84, glucose 163, AST 58. Initial tropon in 50.6. ProBNP 7322, second troponin 52,675. Sodium 141, potassium 3.6, chloride 106, bicarb 23, B UN 24, creatinine 1.89, glucose 133. COVID-19 test negative. Chest x-ray, no acute cardiopulmonary changes. CAT scan of the brain and cervical spine, no acute intracranial or cervical spine changes. Impression: 1.Acute inferior wall myocardial infarction. 2.Ventricular tachycardia. 3.Cardiac arrest. 4.Acute kidney injury. 5.Hypothyroidism. 6.Impaired fasting glucose. 7.Hypertension. 8.Hyperlipidemia. 9.Aortic stenosis. 10.Carotid artery stenosis. 11.Gastroesophageal reflux disease. 12.Prostate cancer. 13.Dementia. 14.Osteoporosis. Plan: Admit patient to hospital for further evaluation and management of this problem. Patient is a ppropriate for inpatient and is expected to spend 2 midnights in the hospital. If the patient is abl e to swallow, we will start him on clear liquid diet, advance as tolerated. Consult stretch machine operator Dr. Roque. Consult Physical therapy. We will put him on electrolyte replacement protocol. Aspirin w as ordered, but nurse informed me that the patient was not able to swallow, so we ordered Lovenox 60 mg subcutaneous injection daily, first dose to be given today and we will give him IV fluid. High-do se statin therapy will be given starting tonight and home medications will be continued per order. W e will use morphine for pain earlier when nurse contacted me from emergency room because patient's mo rphine was not helping. We did order 1 dose of fentanyl 25 mcg patch. I also used Seroquel to help control some of his restlessness and agitation. After I saw him today, nurse contacted and informed me that they were concerned about the patient was having some altered mental status with his body bec oming rigid all of a sudden and still continues to have some restless feeling. Ativan was ordered fo r p.r.n. use and I did recommend possibility of hospice care starting tomorrow and if family agrees then we can make arrangements for hospice care for inpatient hospice starting tomorrow. Overa ll prognosis is poor. TOYA/MODL Voice ID: [id number]
[2021-10-21] MEDS: ATORVASTATIN 80 MG TAB PO SCH (21:00)
[2021-10-21] MEDS: QUETIAPINE 25 MG TAB PO SCH (21:00)
[2021-10-22] MEDS: D5 0.9 NS 1,000 ML IV SCH ×2 (02:53→14:37)
[2021-10-22] MEDS: LORazepam 2 MG/ML VIAL IV PRN ×2 (02:54→15:18)
[2021-10-22] MEDS: METOPROLOL TAR 25 MG TAB PO SCH ×2 (05:45→18:24)
[2021-10-22] MEDS: LEVOTHYROXINE SOD 0.088 MG TAB PO SCH (05:46)
[2021-10-22] MEDS: ASPIRIN EC 81 MG TAB PO SCH (09:00)
[2021-10-22 09:02] LABS: Potassium 4.2 mmol/L (3.5-5.1)
[2021-10-22] MEDS: ENOXAPARIN 60 MG/0.6 ML SQ SCH (09:07)
--- NOTE | 2021-10-22 11:33 | PN ---
Date of Progress Note: 10/22/2021 Subjective: The patient was seen this morning for followup. No new complaints or problems reported by the patient or family. The patient's daughter and were present at bedside. The patient slep t well during daytime yesterday and last night required a dose of Ativan, but after that he slept als o. This morning, he was lying in bed, on nasal cannula oxygen, not in any respiratory distress. Den ies any pain or discomfort anywhere. No chest pain. No shortness of breath. He is tolerating liqui d diet very well this morning. Objective: Vital Signs: Reviewed. HEENT: Examination unremarkable. Lungs: Clear to auscultation. No rales. No wheezing. Heart: Sounds normal. Abdomen: Soft. Bowel sounds normal. No guarding, rigidity, tenderness, distention. Extremities: No leg edema. Neuro: No focal neurological deficits. Laboratory Data: Sodium 141, potassium 4.2, chloride 111, bicarb 23, BUN 31, creatinine 1.88, glucos e 129. Impression: 1.Acute inferior wall myocardial infarction. 2.Acute kidney injury. 3.Hypertension. 4.Hyperlipidemia. 5.Dementia. Plan: The patient is hemodynamically stable at this point. Drawer [employer], Dr. Arroyo, evaluated him yesterday and he was thinking about doing cardiac cath. This morning, I had a long discussion with t he patient's daughter and and they both agree with our decision that they do not want to pursue any cardiac catheterization or any further intervention and medical management is what they are reque sting along with [facility] placement and hospice care upon discharge from the hospital. I did tasha k to them regarding the patient with acute ND is at risk of having another recurrent ND problem, whic h could be life-threatening and the risk involved with cardiac cath procedure and intervention for ex ample after the cardiac cath, possible intervention would include either medical management or macias ry artery bypass surgery on stent placement, but the patient's daughter and both say that knowin g what the patient's wishes would be, they do not think that the patient would want to go undergo any such intervention and they are requesting no cardiac cath and arrangements to be made for nursing [facility] placement and hospice care. We will request Social Service consultation to assist family with thi s. Continue meanwhile aspirin, Lovenox, statin therapy, metoprolol, which was started yesterday by c ardiologist and continue current IV fluid. Ricketts catheter was placed yesterday because of urinary re tention problem and the patient has yellow color urine in the catheter bag. We will remove catheter either today or tomorrow. TOYA/MODL Voice ID: [id number] Report ID: [id number]
[2021-10-22] MEDS ORDERED: ROCURONIUM 50 MG/5 ML VIAL IV ONE (14:31)
[2021-10-22] MEDS ORDERED: ETOMIDATE 20 MG/10 ML VIAL IV ONE (14:31)
[2021-10-22] MEDS: ATORVASTATIN 80 MG TAB PO SCH (21:00)
[2021-10-22] MEDS: QUETIAPINE 25 MG TAB PO SCH (21:00)
--- NOTE | 2021-10-22 21:11 | PN ---
Date of Progress Note: 10/22/2021 Subjective: Seen by bedside. He is comfortable. No chest pain. Family decided no further workup a nd planned for hospice care. Review of Systems: The patient is lying comfortably. There are no obvious signs of discomfort or chest pain. No vomiti ng or diarrhea. Physical Examination: Vital Signs: Reviewed. Head and Neck: Pupils are equal, reactive to light. Intact eye movements. No JVD. No cervical lym phadenopathy. Neck is supple. Thyroid is not enlarged. Lungs: Clear to auscultation bilaterally. No rhonchi, wheezing, or crackles. No accessory muscle u se. Heart: Irregular with aortic systolic murmur. Abdomen: Soft, nontender. Bowel sounds positive. No organomegaly. No masses or hernia. No rigidi ty or rebound. Extremities: No clubbing or cyanosis. Intact pulses. Skin: No rash. Neurologic: He is lethargic. Moving all extremities. Lymph Nodes: No cervical or axillary adenopathy. Investigations: Labs are reviewed. Assessment And Recommendations: Acute inferior ST elevation myocardial infarction. Family declined any intervention workup. Continue medical management, titrate beta-sylvester as blood pressure tolerat es. Continue aspirin and Plavix and high-dose statin, and Cardiology will follow up this patient as an outpatient. /KIRTI Voice ID: [id number] Report ID: [id number]
[2021-10-23] MEDS: LORazepam 2 MG/ML VIAL IV PRN ×2 (02:07→10:33)
[2021-10-23] MEDS: D5 0.9 NS 1,000 ML IV SCH (04:18)
[2021-10-23] MEDS: METOPROLOL TAR 25 MG TAB PO SCH (06:00)
[2021-10-23] MEDS: LEVOTHYROXINE SOD 0.088 MG TAB PO SCH (06:10)
[2021-10-23] MEDS: ASPIRIN EC 81 MG TAB PO SCH (07:45)
[2021-10-23] MEDS ORDERED: CLOPIDOGREL 75 MG TABLET PO SCH (09:00)
[2021-10-23] MEDS ORDERED: ATROPINE SULF 1 MG/10 ML SYR IV ONE (09:25)
[2021-10-23] MEDS ORDERED: EPINEPHrine 1 MG/10 ML SYR IV ONE (09:25)
[2021-10-23 10:26] VITALS: O2SAT 90
[2021-10-23 12:32] VITALS: BP 144/77; TEMP 98.5
--- NOTE | 2021-10-23 14:44 | EKG ---
Test Date: 2021-10-21 Test Time: 04:29:07 Wet Pan Mixer: CADEN MEASUREMENT RESULTS: Intervals: Rate: 132 [place]: QRSD: 122 QT: 266 QTc: 394 Kimberly: P: [place]: QRS: 100 T: 86 INTERPRETIVE STATEMENTS: Undetermined rhythm Rightward axis Inferior infarct, possibly acute Lateral injury pattern ACUTE NE / STEMI Consider right ventricular involvement in acute inferior infarct Abnormal ECG Compared to ECG 10/21/2021 04:08:32 Right-axis deviation now present Atrial fibrillation no longer present ST (T wave) deviation no longer present Myocardial infarct finding still present Electronically Signed On 10-23-21 14:41:36 CDT by Gagan Arroyo
--- NOTE | 2021-10-24 10:17 | DS ---
Date of Discharge: 10/23/2021 Disposition: The patient today. Physical Examination: General: This morning when I saw him, he was lying in bed, not in any distress. HEENT: Unremarkable. Lungs: Clear to auscultation. Heart: Sounds normal. Abdomen: Soft. Bowel sounds normal. No guarding, rigidity, tenderness, distention. Extremities: No leg edema. Laboratory Data: Upon admission on 10/21/2021, sodium 141, potassium 3.4, chloride 107, bicarb 23, B UN 23, creatinine 1.84, glucose 163. Initial troponin 50.6. Repeat troponin 52,675. Last chemistry from yesterday; sodium 141, potassium 4.2, chloride 111, bicarb 23, BUN 31, creatinine 1.88, glucose 129. CBC from time of admission, white count 6.7, hemoglobin 14.4, platelets 186. Hospital Course: This is an 86-year-old male patient who was admitted to the hospital with acute inf erior wall myocardial infarction and cardiac arrest with pulseless ventricular tachycardia. The nick ent was resuscitated in the emergency room and he was intubated, and within 2-3 hours after that, he was extubated. The patient's family informed the ER physician that the patient did not want any hero ic measures like CPR, defibrillation, or ventilator support, so subsequently patient was extubated. When I saw him, he was not on ventilator and his was present with him at bedside on the day of a dmission. Aspirin and Lovenox were started. Cardiology consultation was requested, had cardiac cath procedure, but I had a long discussion with the patient's and the patient's daughter, the patie nt has significant dementia problem and the patient's and daughter informed me that on basis of what they know about the patient's wishes, they do not want him to undergo any cardiac cath type of p rocedure and conservative treatment and comfort care requested including family requested hospice car e to be arranged, so we were in process of getting this hospice care and Social Service consultation was requested and plan was to discharge the patient to go to [facility] facility with hospice ca re. This morning when I saw him, he was sleeping, not in any distress, arousable but did not answer any questions. During the course of day today, his condition deteriorated and the patient started to have along with a very shallow breathing, altered mental status, and subsequently the patient . DNR order was in place. Final Diagnoses: 1.Acute inferior wall myocardial infarction. 2.Ventricular tachycardia. 3.Cardiac arrest. 4.Acute kidney injury. 5.Hypothyroidism. 6.Impaired fasting glucose. 7.Hypertension. 8.Hyperlipidemia. 9.Aortic stenosis. 10.Gastroesophageal reflux disease. 11.Prostate cancer. 12.Senile dementia. 13.Osteoporosis. 14.Carotid artery stenosis. TOYA/MODL Voice ID: [id number] Report ID: [id number]
== END 2021-10-23 15:41 | disposition expired ==
LOC: ER 03:36 → ERHOLD 06:50 → 2ND 10:08
PROVIDERS: ADMIT Internal Medicine; ATTEND Internal Medicine
PROC: 0BH17EZ Insertion of Endotracheal Airway into Trachea, Via Natural or Artificial Opening (ICD-10-PCS; principal; 2021-10-21)
PROC: 5A1935Z Respiratory Ventilation, Less than 24 Consecutive Hours (ICD-10-PCS; 2021-10-21)
PROC: 5A12012 Performance of Cardiac Output, Single, Manual (ICD-10-PCS; 2021-10-21)
DX: I21.19 ST elevation (STEMI) myocardial infarction involving other coronary artery of inferior wall (principal); J96.01 Acute respiratory failure with hypoxia; I47.2 Ventricular tachycardia; N17.9 Acute kidney failure, unspecified; I46.2 Cardiac arrest due to underlying cardiac condition; E03.9 Hypothyroidism, unspecified; I10 Essential (primary) hypertension; E78.5 Hyperlipidemia, unspecified; I35.0 Nonrheumatic aortic (valve) stenosis; I65.29 Occlusion and stenosis of unspecified carotid artery; F03.90 Unspecified dementia, unspecified severity, without behavioral disturbance, psychotic disturbance, mood disturbance, and anxiety; M81.0 Age-related osteoporosis without current pathological fracture; Z85.46 Personal history of malignant neoplasm of prostate; Z66 Do not resuscitate; Z20.822 Contact with and (suspected) exposure to COVID-19
CPT/HCPCS: 31500; 36415; 70450; 71045; 72125; 80048; 80076; 82805; 82947; 83735; 83880; 84484; 85025; 85610; 92950; 92960; 93005; 94002; 94760; 97161; 97530; 99291; 99292; J0171; J1650; J2704; J7042; U0003